=== PATIENT | female | born 1985 | race African-American/Black ===

== ENCOUNTER → 2017-12-06 | Outpatient (CLI) | payer BC | LOC: M SLEEP 19:38 | DX: G47.33 Obstructive sleep apnea (adult) (pediatric) (principal) | CPT/HCPCS: 95810 ==

== ENCOUNTER → 2018-01-16 | Outpatient (CLI) | payer BC | LOC: M SLEEP 19:44 | DX: G47.33 Obstructive sleep apnea (adult) (pediatric) (principal) | CPT/HCPCS: 95811 ==

== ENCOUNTER → 2018-05-26 | Outpatient (REF) | payer BC ==
[~2018-05-26] MED LIST: COLA100C5 PO; IBUP1TAB7 PO; LABE20TAB PO; PERC5TAB12 PO; PREN1TAB18 PO
== END ==
LOC: M LAB REF 15:14
PROVIDERS: ATTEND Nurse Practitioner Family
DX: R21 Rash and other nonspecific skin eruption (principal)

== ENCOUNTER → 2018-08-10 | Outpatient (REF) | payer BC ==
[2018-08-15 14:31] LABS: HPV HYBRID CAPTURE II Negative (Negative)
== END ==
LOC: M LAB REF 16:49
PROVIDERS: ATTEND Advanced Practice Midwife
DX: Z12.4 Encounter for screening for malignant neoplasm of cervix (principal)
CPT/HCPCS: 87624; G0123

== ENCOUNTER → 2018-11-24 | Outpatient (CLI) | payer BC ==
[~2018-11-24] MED LIST changes: +E-Z-GAS II EFFERVESCENT PACKET (SODIUM BICARB./CITRIC ACID/SIMETHICONE) As Ordered ONE; +E-Z-HD 98% w/w 340GM SUSP BTL As Ordered ONE; +E-Z-PAQUE 96% w/w SUSP 176GM BTL As Ordered ONE
--- NOTE | 2018-11-28 09:18 | REP ---
Esophagram The procedure was performed under the direct supervision of Dr. Elder. The images were reviewed with Dr. Elder. A single view PA chest x-ray is submitted as a glass selector film. The superior mediastinal structures are midline. The heart size is within normal limits. The lungs are clear. Liquid barium and gas producing granules were given in the erect position as well as liquid barium in the prone oblique positions in order to perform a double contrast esophagram examination. The oral and pharyngeal stages of deglutition are unremarkable. Esophageal transport is prompt and efficient and there is no esophagitis, stricture, mucosal ring or hiatal hernia. Gastroesophageal reflux is not demonstrated on this examination. Impression: Essentially unremarkable double contrast esophagram examination. 0.6 minutes of fluoro time was utilized for this procedure. Electronically Signed by ALONSO Saldivar 11/24/2018 02:59 P Electronically Signed by Ben Elder MD 11/28/2018 09:08 A
== END ==
LOC: M RAD 07:53
PROVIDERS: ATTEND Otolaryngology
DX: R07.0 Pain in throat (principal)

== ENCOUNTER → 2019-05-24 | Outpatient (REF) | payer BC ==
[~2019-05-24] MED LIST changes: -E-Z-GAS II EFFERVESCENT PACKET (SODIUM BICARB./CITRIC ACID/SIMETHICONE) As Ordered ONE; -E-Z-HD 98% w/w 340GM SUSP BTL As Ordered ONE; -E-Z-PAQUE 96% w/w SUSP 176GM BTL As Ordered ONE
[2019-05-24 17:12] LABS: HEMATOCRIT 35.9 % (36.0-47.0); HEMOGLOBIN 11.7 g/dl (12.0-15.5); MEAN CORPUSCULAR HEMOGLOBIN 27.7 pg (27.0-33.0); MEAN CORPUSCULAR HGB CONC 32.6 g/dl (32.0-36.5); MEAN CORPUSCULAR VOLUME 84.9 fl (80.0-96.0); PLATELET COUNT, AUTOMATED 302 10^3/uL (150-450); RED BLOOD COUNT 4.23 10^6/uL (4.00-5.40); WHITE BLOOD COUNT 9.8 10^3/uL (4.0-10.0)
[2019-05-24 17:17] LABS: ALT/SGPT 14 U/L (12-78); BILIRUBIN,TOTAL 0.2 MG/DL (0.2-1.0); CREATININE FOR GFR 0.56 MG/DL (0.55-1.30); GLOMERULAR FILTRATION RATE > 60.0 (>60); LDH LACTATE DEHYDROGENASE 147 U/L (84-246); URIC ACID 1.9 MG/DL (2.6-6.0)
[2019-05-24 17:35] LABS: CREATININE,RANDOM URINE 79.3 MG/DL; TOTAL PROTEIN,RANDOM URINE 11.1 MG/DL (0.0-12.0)
[2019-05-24 18:51] LABS: CHLAMYDIA DNA AMPLIFICATION NEGATIVE (NEGATIVE); GC DNA AMPLIFICATION NEGATIVE (NEGATIVE)
[2019-05-25 08:29] LABS: RUBELLA IgG QUALITATIVE IMMUNE (IMMUNE)
[2019-05-25 08:30] LABS: HEPATITIS B SURFACE ANTIGEN NEGATIVE (NEGATIVE)
[2019-05-25 08:58] LABS: HEPATITIS C VIRUS ABY INDEX 0.1 INDEX (<0.8); HIV 1&2 SCREEN CENTAUR NEGATIVE (NEGATIVE)
== END ==
LOC: M PLALAB 14:28
PROVIDERS: ATTEND Advanced Practice Midwife
DX: O34.211 Maternal care for low transverse scar from previous cesarean delivery (principal)

== ENCOUNTER → 2019-08-03 | Outpatient (CLI) | payer BC ==
[~2019-08-03] MED LIST changes: +ASPI81TA86 PO; +IBUP80TA PO; +PERCOCET PO
--- NOTE | 2019-08-03 12:22 | REP ---
OBSTETRIC SONOGRAPHY: HISTORY: Supervision of for anatomy. FINDINGS: Scanning through the gravid uterus demonstrates a viable single intrauterine gestation in a variable lie. Placenta is posterior grade 1 without evidence of previa or abruption. motion is observed and heart rate is recorded at 146 beats per minute. Closed cervical length measured transabdominally is 3.4 cm. No extrauterine abnormality observed. Hypoechoic areas are seen in the uterus consistent with fibroids. The largest of these measures 3.0 cm in greatest diameter. No abnormalities observed. The following anatomic structures are identified and felt to be sonographically unremarkable: cranium, choroid plexus, cavum, cerebellum posterior fossa, nuchal fold face and profile, four-chamber heart with left and right ventricular outflow tract views, diaphragm, left-sided stomach, abdominal wall cord insertion, three-vessel umbilical cord, kidneys and bladder, spine, upper and lower extremities. Biometry Chart: BPD 4.1 cm = 18 weeks 3 days HC 15.8 cm = 18 weeks 5 days AC 13.3 cm = 18 weeks 5 days FL 2.5 cm = 17 weeks 5 days HL 2.5 cm = 17 weeks 6 days HC/AC ratio normal 1.19 Cephalic index normal 0.71. Estimated weight 234 grams, 0 pounds 8 ounces, 36th percentile for 18 weeks 4 days. IMPRESSION: Single living intrauterine gestation and 18 weeks 4 days by today's composite sonographic criteria. PRACHI by today's sonography December 31, 2019. No abnormality. Uterine fibroids.
== END ==
LOC: M WHC 09:49
PROVIDERS: ATTEND Advanced Practice Midwife
DX: O10.019 Pre-existing essential hypertension complicating pregnancy, unspecified trimester (principal)

== ENCOUNTER → 2019-09-21 | Outpatient (REF) | payer BC ==
[2019-10-20 04:26] LABS: HEMATOCRIT 33.6 % (36.0-47.0); HEMOGLOBIN 10.7 g/dl (12.0-15.5); MEAN CORPUSCULAR HEMOGLOBIN 28.5 pg (27.0-33.0); MEAN CORPUSCULAR HGB CONC 31.8 g/dl (32.0-36.5); MEAN CORPUSCULAR VOLUME 89.6 fl (80.0-96.0); PLATELET COUNT, AUTOMATED 274 10^3/uL (150-450); RED BLOOD COUNT 3.75 10^6/uL (4.00-5.40); WHITE BLOOD COUNT 13.4 10^3/uL (4.0-10.0)
== END ==
LOC: M SFHCWAGY 17:00
PROVIDERS: ATTEND Obstetrics & Gynecology
DX: O34.211 Maternal care for low transverse scar from previous cesarean delivery (principal)

== ENCOUNTER → 2019-10-19 | Outpatient (CLI) | payer BC ==
--- NOTE | 2019-11-13 13:49 | REP ---
LIMITED OBSTETRICAL ULTRASOUND FOR GROWTH EVALUATION COMPARISON: 08/03/2019. TECHNIQUE: Transabdominal obstetrical ultrasound with color Doppler evaluation. FINDINGS: Ultrasound examination demonstrates a single live intrauterine in cephalic presentation. motion was identified by the technologist. Placenta noted posteriorly and grade 1 without evidence for placenta previa or abruption. Amniotic fluid volume is normal. Cervix measures 3.0 cm in length. ARTUR equals 13.9 cm. heart rate 134 beats per minute. MEASUREMENTS: BPD 74 mm 29 weeks 4 days HC 280 mm 30 weeks 5 days AC 245 mm 28 weeks 6 days FL 52 mm 27 weeks 5 days HL 46 mm 27 weeks 3 days Estimated age by current measurements 29 weeks 2 days with estimated date of delivery 01/02/2020. Estimated weight 1258 grams (4th percentile). Anatomic assessment demonstrates normal stomach, kidney/bladder, three-vessel cord/cord insertion, and facial features. IMPRESSION: Single live intrauterine in cephalic presentation. Estimated weight lower limits of normal. No gross abnormality identified. MTDD
== END ==
LOC: M WHC 08:13
PROVIDERS: ATTEND Advanced Practice Midwife
DX: O16.3 Unspecified maternal hypertension, third trimester (principal); Z3A.29 29 weeks gestation of pregnancy

== ENCOUNTER → 2019-10-31 | Outpatient (CLI) | payer BC ==
--- NOTE | 2019-10-31 15:04 | REPVR ---
PROCEDURE INFORMATION: Exam: US Biophysical Profile Without Non-Stress Test Exam date and time: 10/31/2019 2:33 PM Age: 34 years old Clinical indication: Other: Growth less than 10%; ; Additional info: HTN, growth less than 10% TECHNIQUE: Imaging protocol: US biophysical profile without non-stress testing. COMPARISON: US PBB W/O NON STRESS TEST 12/22/2015 11:06 AM FINDINGS: BIOPHYSICAL PROFILE: Breathin/2 Gross body movements: 2/2 tone: 2/2 Qualitative amniotic fluid: 2/2 Biophysical Profile Score: 8/8 IMPRESSION: Biophysical profile score is 8 out of 8. Electronically signed by: Philip Venegas On 10/31/2019 15:04:15 PM
== END ==
LOC: M RAD 13:37
PROVIDERS: ATTEND Advanced Practice Midwife
DX: O10.019 Pre-existing essential hypertension complicating pregnancy, unspecified trimester (principal); O36.5990 Maternal care for other known or suspected poor fetal growth, unspecified trimester, not applicable or unspecified

== ENCOUNTER → 2019-11-07 | Outpatient (CLI) | payer BC ==
--- NOTE | 2019-11-15 17:22 | REP ---
BIOPHYSICAL PROFILE ULTRASOUND CLINICAL: wellbeing. TECHNIQUE: Transabdominal obstetrical ultrasound with color Doppler evaluation. FINDINGS: Ultrasound examination demonstrates a single live intrauterine in transverse lie with head to maternal left. motion identified by the technologist. Placenta noted posteriorly and grade 3 without evidence for placenta previa. Amniotic fluid volume is normal. Cervix measures 3.8 cm in length and appears closed. Gestational age by last menstrual period (LMP) 33 weeks 0 days with estimated date of delivery 12/26/2019. Gestational age by current measurements 30 weeks 6 days with estimated date of delivery 01/10/2020. heart rate 124 beats per minute. Amniotic fluid index (ARTUR) 10.8 cm. BIOMETRIC MEASUREMENTS: BPD 8.0 cm 32 weeks 0 days HC 30.1 cm 33 weeks 2 days AC 26.4 cm 30 weeks 3 days FL 5.5 cm 29 weeks 0 days HL 5.0 cm 29 weeks 2 days HC/AC ratio 1.14 Estimated weight 1570 grams (less than 3rd percentile based on age by last menstrual period (LMP). Biophysical profile score equals 8/8. Umbilical cord S/D ratio equals 2.8, 2.5. IMPRESSION: * Single live intrauterine in transverse lie. * Estimated weight and growth is less than expected and requires correlation. * Biophysical profile score equals 8/8. MTDD
== END ==
LOC: M WHC 07:00
PROVIDERS: ATTEND Advanced Practice Midwife
DX: O16.3 Unspecified maternal hypertension, third trimester (principal); Z3A.33 33 weeks gestation of pregnancy

== ENCOUNTER → 2019-11-14 | Outpatient (CLI) | payer BC ==
--- NOTE | 2019-11-21 14:12 | REP ---
OBSTETRIC SONOGRAPHY HISTORY: Maternal hypertension. Biophysical profile and umbilical cord Doppler assessment. Estimated date of delivery (PRACHI) 12/26/2019. Limited study. FINDINGS: Scanning through the gravid uterus demonstrates a viable single intrauterine gestation in a cephalic lie. A posterior grade 3 placenta is seen without evidence of previa. heart rate is recorded at 128 beats per minute. Amniotic fluid is subjectively normal. Amniotic fluid index (ARTUR) is normal at 12.4 cm. Biophysical profile score is 8 out of a possible 8. S/D ratio in the umbilical cord artery by Doppler is normal at 2.6. Closed cervical length is 3.2 cm measured transabdominally. MTDD
== END ==
LOC: M WHC 06:32
PROVIDERS: ATTEND Advanced Practice Midwife
DX: O10.019 Pre-existing essential hypertension complicating pregnancy, unspecified trimester (principal)

== ENCOUNTER → 2019-11-20 | Outpatient (CLI) | payer BC ==
--- NOTE | 2019-11-27 09:05 | REP ---
OB ULTRASOUND BIOPHYSICAL PROFILE: 11/20/19 HISTORY: Hypertension Real time sonographic evaluation of gravid uterus performed. There is a single living intrauterine gestation. Estimated gestation age is reportedly 34 weeks 6 days, EDC 12/26/19. position is cephalic. Placenta is posterior and grade 2 with no previa or abruption. Umbilical cord inserts on the mid aspect of the placenta. Three vessel cord is noted. HEART RATE is 135bpm. Amniotic fluid is within normal limits. ARTUR 13.0 within normal range of 7.9-24.9. BIOPHSYICAL PROFILE SCORE: 8/8. The cervix is closed and measures 3.6cm in length. S/D Ratio of the umbilical artery near the placental insertion is 2.6, near the insertion is 2.7, and mid aspect 2.8 MTDD
== END ==
LOC: M WHC 06:50
PROVIDERS: ATTEND Advanced Practice Midwife
DX: O16.3 Unspecified maternal hypertension, third trimester (principal); Z3A.34 34 weeks gestation of pregnancy

== ENCOUNTER → 2019-11-26 | Outpatient (REF) | payer BC | LOC: M SFHCWAGY 10:19 | PROVIDERS: ATTEND Obstetrics & Gynecology | DX: O10.912 Unspecified pre-existing hypertension complicating pregnancy, second trimester (principal) ==

== ENCOUNTER → 2019-11-28 | Outpatient (CLI) | payer BC ==
--- NOTE | 2019-11-30 15:43 | REP ---
LIMITED OBSTETRICAL ULTRASOUND CLINICAL: History of hypertension for wellbeing. COMPARISON: 11/20/2019. FINDINGS: Ultrasound examination demonstrates a single live advanced gestation in cephalic presentation. motion was identified by the technologist. Placenta is noted posteriorly and grade 2 without evidence for placenta previa. Amniotic fluid volume is normal. Cervix measures 3.3 cm in length and appears closed. Amniotic fluid index (ARTUR) equals 14.3 cm. heart rate equals 133 beats per minute. Gestational age by last menstrual period (LMP) 36 weeks 0 days with estimated date of delivery 12/26/2019. Gestational age by current measurements 33 weeks 2 days with estimated date of delivery 01/14/2020. HC/AC ratio equals 1.04. Estimated weight by current biometrical measurements 2199 grams (less than 3rd percentile) based on age by last menstrual period (LMP). Biophysical profile score: 8 out of 8. Umbilical cord S/D ratios: Placenta insertion 2.1 Mid-cord 2.3 insertion 2.4 IMPRESSION: * Single live intrauterine in cephalic presentation demonstrating less than expected interval growth. * Biophysical profile score and amniotic fluid volume are normal. MTDD
== END ==
LOC: M WHC 06:36
PROVIDERS: ATTEND Advanced Practice Midwife
DX: O16.3 Unspecified maternal hypertension, third trimester (principal); Z3A.36 36 weeks gestation of pregnancy

== ENCOUNTER → 2019-11-29 | Outpatient (CLI) | payer BC | LOC: M LABSMTC 10:01 | PROVIDERS: ATTEND Anesthesiology | DX: Z01.812 Encounter for preprocedural laboratory examination (principal); Z20.828 Contact with and (suspected) exposure to other viral communicable diseases | CPT/HCPCS: C9803; U0003 ==

== ENCOUNTER 2019-12-01 10:15 | Outpatient (CLI) | payer BC ==
[~2019-12-01] VITALS: Ht 162.6 cm; Wt 87.1 kg
[~2019-12-01 10:15] MED LIST changes: -IBUP80TA PO; -PERCOCET PO
[2019-12-01 10:36] VITALS: BP 128/81
[2019-12-01] MEDS ORDERED: BETAMETHASONE SOLUSPAN 6MG/ML 5ML VIAL (J0702 PER 3MG) IM ONE (10:45)
== END 2019-12-01 11:07 | disposition home or self-care (01) ==
LOC: M LDO 10:15
PROVIDERS: ATTEND Obstetrics & Gynecology
DX: Z34.83 Encounter for supervision of other normal pregnancy, third trimester (principal)
CPT/HCPCS: 96372; G0378; G0463; J0702

== ENCOUNTER 2019-12-02 10:57 | Outpatient (CLI) | payer BC ==
[2019-12-02 11:11] VITALS: BP 122/78
[2019-12-02] MEDS ORDERED: BETAMETHASONE SOLUSPAN 6MG/ML 5ML VIAL (J0702 PER 3MG) IM ONE (11:15)
== END 2019-12-02 11:20 | disposition home or self-care (01) ==
LOC: M LDO 10:57
PROVIDERS: ATTEND Obstetrics & Gynecology
DX: Z34.83 Encounter for supervision of other normal pregnancy, third trimester (principal)
CPT/HCPCS: 96372; G0378; J0702

== ENCOUNTER 2019-12-04 05:19 | Inpatient (IN) | payer BC ==
[2019-12-04] VITALS (7 sets, daily range): BP systolic 114–136; BP diastolic 51–89
[~2019-12-04] VITALS: Ht 162.6 cm; Wt 87.0 kg
[2019-12-04] MEDS ORDERED: BICITRA 30ML SOLN UDC PO ONE (05:45)
[2019-12-04] MEDS ORDERED: LR 1,000 ML IV SCH ×3 (05:45→11:30)
[2019-12-04] MEDS ORDERED: ceFAZolin SOD 2 GM in IV 1 EA IV ONE (05:45)
[2019-12-04] MEDS ORDERED: LR 1,000 ML IV ONE (05:45)
[2019-12-04 06:37] LABS: HEMATOCRIT 33.9 % (36.0-47.0); HEMOGLOBIN 10.8 g/dl (12.0-15.5); MEAN CORPUSCULAR HEMOGLOBIN 27.7 pg (27.0-33.0); MEAN CORPUSCULAR HGB CONC 31.9 g/dl (32.0-36.5); MEAN CORPUSCULAR VOLUME 86.9 fl (80.0-96.0); PLATELET COUNT, AUTOMATED 272 10^3/uL (150-450); WHITE BLOOD COUNT 13.8 10^3/uL (4.0-10.0)
[2019-12-04] MEDS ORDERED: MORPHINE PRES-FREE INJ 10 MG/10 ML VIAL (J2274) As Ordered ONE (09:20)
[2019-12-04] MEDS ORDERED: ONDANSETRON 4MG/2ML VIAL As Ordered ONE (09:20)
[2019-12-04] MEDS ORDERED: OXYTOCIN INJ 10 UNITS/ML VIAL (J2590) As Ordered ONE (09:20)
[2019-12-04] MEDS ORDERED: NALBUPHINE HCL 10 MG/ML AMP (J2300) IV PRN ×2 (09:35→11:30)
[2019-12-04] MEDS ORDERED: ONDANSETRON 4MG/2ML VIAL IV PRN ×3 (09:35→11:30)
[2019-12-04] MEDS ORDERED: diphenhydrAMINE 50MG/ML VIAL (J1200) IV PRN (09:35)
[2019-12-04] MEDS ORDERED: NALOXONE INJ 0.4MG/1ML VIAL (J2310 PER 1MG) IV PRN ×2 (09:35)
[2019-12-04] MEDS ORDERED: METOCLOPRAMIDE INJ 10MG/2ML VIAL (J2765 PER 1) IV PRN (09:35)
[2019-12-04] MEDS ORDERED: ePHEDrine SULFATE 25 MG/5 ML(5MG/ML) SYRINGE As Ordered ONE (09:42)
[2019-12-04] MEDS ORDERED: OXYTOCIN DRIP 30 UNITS in IV 1 EA IV SCH ×2 (10:40→10:51)
[2019-12-04] MEDS ORDERED: METHYLERGONOVINE MALEATE 0.2 MG TAB PO PRN (10:45)
[2019-12-04] MEDS ORDERED: IBUPROFEN 600MG TAB PO PRN (10:45)
[2019-12-04] MEDS ORDERED: RHOGAM 300 MCG (1500 IU) INJ (J2790) IM SCH (10:45)
[2019-12-04] MEDS ORDERED: DIBUCAINE 1% OINTMENT 30GM TOP PRN (10:45)
[2019-12-04] MEDS ORDERED: ACETAMINOPHEN TAB 650MG DOSE (2X325MG) PO PRN (10:45)
[2019-12-04] MEDS ORDERED: ACETAMINOPHEN 500 MG TAB PO PRN (10:45)
[2019-12-04] MEDS ORDERED: MEASLES,MUMPS,RUBELLA VACCINE INJ (MMR-II) (90707) SC SCH (10:45)
[2019-12-04] MEDS ORDERED: MOM 30ML SUSPENSION UDC PO PRN (10:45)
--- NOTE | 2019-12-04 10:49 | ROOPDOC ---
[facility] Report Of Operation Report of Operation DATE OF PROCEDURE: 12/04/19 SURGEON: Tania Ferreira M.D. FINGERER: Jayden Lindquist M.D. ( essential for tissue retractions, exposure and delivery of ) PROCEDURE: Repeat section PREOPERATIVE DIAGNOSIS: 1. History of prior section 2. Chronic Hypertension 3. Intrauterine growth restriction, <3% POSTOPERATIVE DIAGNOSIS: 1. History of prior section 2. Chronic Hypertension 3. Intrauterine growth restriction, <3% ANESTHESIA: Spinal ESTIMATED BLOOD LOSS: 600 mL URINE OUTPUT: 75 mL INTRAVENOUS FLUIDS:1000 mL of lactated Ringer's solution PREOPERATIVE ANTIBIOTICS:. 2 g of Ancef 500 OPERATIVE FINDINGS: Liveborn female infant, Apgars 9 and 9. Weight 2420 g or 5 lbs. 5 oz. SPECIMENS: Placenta DESCRIPTION OF PROCEDURE: After informed consent was obtained and written consent was reviewed. The patient was brought to the operating room where spinal anesthesia was placed. She was then placed in the supine position with a left lateral tilt. Sue catheter was placed and to gravity. Patient was then prepped and draped in the normal sterile fashion. A timeout operating room was performed identifying the patient, procedure be performed as well as drug allergies. Anesthesia was tested and deemed to be adequate. Previous skin incision was removed. The fascia was then scored and this incision was extended bilaterally. The fascia was then dissected off the underlying rectus muscle superiorly and inferiorly. The rectus muscles were then in the midline. The peritoneum is then entered. Vesicouterine peritoneum was then tented and excised and a bladder flap was created. Mobius retractor was then placed. Next, a curvilinear incision was then made in the lower uterine segment. Amniotomy was performed, productive, clear fluid. The head was brought to the level of the incision atraumatically and delivered along the shoulders and corpus. The cord was clamped x2. The was brought over to the warmer with a good cry. Placenta was drained and delivered grossly intact. The uterus was cleared of all clots and debris and the uterine incision was then closed using 0 Vicryl in a running locking fashion followed. The abdomen was suctioned. Surgical sites reinspected and noted be hemostatic. The retractor was then removed. The anterior peritoneum was then reapproximated with 3-0 Vicryl. The rectus muscles were reapproximated 3-0 Vicryl. The fascia was then closed using 0 Vicryl in a running nonlocking fashion. The subcutaneous tissues was then irrigated and suctioned. Several subdermal stitch is placed using 3-0 Vicryl and the skin was closed with 4-0 Monocryl and subcuticular fashion. This incision was then cleaned and dried and was dressed. The patient was then taken to recovery in stable condition. All counts were correct. My assistant finance director Dr. Lindquist, played in an essential role during the operation. He assisted with tissue identification retraction, delivery of the , as well as wound closure. TANIA FERREIRA MD. Dec 04, 2019 10:49
[2019-12-04] MEDS ORDERED: IBUP80TA PO (10:51)
[2019-12-04] MEDS ORDERED: PERCOCET PO (10:58)
[2019-12-04] MEDS ORDERED: PERCOCET 5MG/325MG TAB PO PRN ×2 (11:00)
[2019-12-04] MEDS ORDERED: fentaNYL 100 MCG/2 ML INJECTION (J3010) IV PRN (11:30)
[2019-12-04] MEDS ORDERED: OXYTOCIN 30 UNITS IN 0.9% NaCl 500ML IV BAG (J2590) As Ordered ONE (11:39)
[2019-12-04] MEDS: PRENATAL VITAMINS CHEWABLE TABLET PO SCH (12:43)
[2019-12-04] MEDS: DOCUSATE SODIUM 100 MG CAP PO SCH ×2 (12:43→20:45)
[2019-12-04] MEDS ORDERED: KETOROLAC 30 MG/ML 1ML VIAL IV SCH (13:00)
[2019-12-04] MEDS: KETOROLAC 30 MG/ML 1ML VIAL IV SCH ×2 (14:28→20:02)
[2019-12-04] MEDS: LABETALOL 200 MG TAB PO SCH (20:45)
[2019-12-05 01:52] VITALS: BP 119/66
[2019-12-05] MEDS: KETOROLAC 30 MG/ML 1ML VIAL IV SCH ×2 (02:22→08:29)
[2019-12-05 06:09] VITALS: BP 118/59
[2019-12-05 07:06] LABS: HEMOGLOBIN 10.4 g/dl (12.0-15.5); MEAN CORPUSCULAR HEMOGLOBIN 28.3 pg (27.0-33.0); MEAN CORPUSCULAR HGB CONC 32.5 g/dl (32.0-36.5); PLATELET COUNT, AUTOMATED 237 10^3/uL (150-450); RED BLOOD COUNT 3.68 10^6/uL (4.00-5.40)
--- NOTE | 2019-12-05 07:34 | IPNPDOC ---
Progress Note Date of Service: Dec 05, 2019 Day#: 1 Progress Note SUBJECT: Doing well without complaints. Ambulating, voiding and pain is well- controlled. Reports minimal lochia. OBJECTIVE: VITAL SIGNS: Within normal limits, afebrile. Alert and oriented times three. Abdomen: Fundus firm at U-2. Soft, NTTP. Incision: dressed Ext: neg calf tenderness. ASSESSMENT: /postoperative day #1 status post delivery. Recovering in stable condition. PLAN: 1. Continue routine /postoperative care 2. Discharge plans for tomorrow VS, I&O, 24H, Fishbone Vital Signs/I&O Vital Signs Date Time Temp Pulse Resp B/P (MAP) Pulse Ox O2 Delivery O2 Flow Rate FiO2 12/05/19 06:09 97.4 78 18 118/59 (78) 97 12/04/19 22:00 Room Air I&O- Last 24 Hours up to 6 AM 12/05/19 05:59 Intake Total 4000 ml Output Total 1725 ml Balance 2275 ml Laboratory Data 24H LABS Laboratory Tests 2 12/05/19 06:52: Nucleated Red Blood Cells % (auto) 0.0 CBC/BMP Laboratory Tests 12/05/19 06:52 ANKUR DEL RIO MD. Dec 05, 2019 07:34
[2019-12-05] MEDS: DOCUSATE SODIUM 100 MG CAP PO SCH ×2 (08:28→20:37)
[2019-12-05] MEDS: PRENATAL VITAMINS CHEWABLE TABLET PO SCH (08:28)
[2019-12-05] MEDS: LABETALOL 200 MG TAB PO SCH ×2 (08:29→20:41)
[2019-12-05] MEDS ORDERED: INFLUENZA QUADRIVALENT PF VACCINE 0.5ML SYRINGE IM ONE (09:00)
[2019-12-05 10:00] VITALS: BP 108/57
[2019-12-05 14:00] VITALS: BP 134/79
[2019-12-05] MEDS: IBUPROFEN 800 MG TAB PO PRN (17:00)
[2019-12-05 18:00] VITALS: BP 118/73
[2019-12-05 22:00] VITALS: BP 114/64
[2019-12-06 02:00] VITALS: BP 117/68
[2019-12-06 06:00] VITALS: BP 122/69
[2019-12-06] MEDS ORDERED: INFLUENZA QUADRIVALENT PF VACCINE 0.5ML SYRINGE IM ONE (09:00)
[2019-12-06] MEDS: DOCUSATE SODIUM 100 MG CAP PO SCH (09:13)
[2019-12-06 09:14] VITALS: BP 136/88
[2019-12-06] MEDS: LABETALOL 200 MG TAB PO SCH (09:14)
[2019-12-06] MEDS: PRENATAL VITAMINS CHEWABLE TABLET PO SCH (09:14)
[2019-12-06] MEDS: IBUPROFEN 800 MG TAB PO PRN (09:29)
--- NOTE | 2019-12-06 09:49 | DSES ---
DATE OF ADMISSION: 12/04/2019 DATE OF DISCHARGE: DISCHARGE DIAGNOSIS: Repeat section, chronic hypertension; postop day two; stable condition. SURGEON: Dr. Tania Ferreira INSTRUCTOR TAP DANCING: Dr. Jayden Lindquist HISTORY: Stephanie is a 34 year old who underwent repeat section on 12/04/2019 due to chronic hypertension complicated with intrauterine growth restriction. She was 36-6/7 week's gestation. Her surgery was uncomplicated. She had an estimated blood loss (EBL) of 600 mL, delivered a live female weighing 2420 grams (5 pounds 5 ounces) and Apgars 9/9. Stephanie has had an uncomplicated postoperative course. She has been out of bed for self-care, pierre care, infant care. She is breast feeding. She is voiding without difficulty and passing flatus. Her pain at this point has been well managed with p.o. pain medications, tolerating p.o. fluids and a regular diet, and she does request discharge home today. OBJECTIVE: Temp 98.4, pulse 75, respirations 18, blood pressure is 122/69. CBC, 12/04/2019: Hemoglobin 10.8, hematocrit 33.9, platelets 272. CBC, 12/05/2019 postoperatively: Hemoglobin 10/4, hematocrit 32 and platelets 237. Her breasts are soft and nontender. Nipples are intact. Her fundus is firm, one fingerbreadth under umbilicus. The incision is intact with a dressing applied. There is no new drainage noted. Perineum is intact with lochia rubra scant. Bilateral lower extremities with 1+ pitting edema. PLAN: Discharge the patient home today. She is to follow up with a two-week incision check and an eight-week visit with Dr. Ferreira. The pain medications, ibuprofen and Percocet, have been E-prescribed to her pharmacy by Tania Goode. I did review discharge instructions that include breast care, incision care, pierre care, pelvic rest, activity and lifting restrictions, access to care and other danger signs to report to her provider. The patient and her have had their questions answered and desire discharge. [place]
== END 2019-12-06 13:40 | disposition home or self-care (01) | DRG 540 ==
LOC: M LDI 05:19 → M OBS 10:26
PROVIDERS: ADMIT Obstetrics & Gynecology; ATTEND Obstetrics & Gynecology
PROC: 10D00Z1 Extraction of Products of Conception, Low, Open Approach (ICD-10-PCS; principal; 2019-12-04 09:30)
DX: O36.5930 Maternal care for other known or suspected poor fetal growth, third trimester, not applicable or unspecified (principal); O34.211 Maternal care for low transverse scar from previous cesarean delivery; O10.02 Pre-existing essential hypertension complicating childbirth; Z37.0 Single live birth; Z3A.36 36 weeks gestation of pregnancy

== ENCOUNTER → 2020-01-30 | Outpatient (REF) | payer BC ==
[~2020-01-30] MED LIST changes: +IBUP80TA PO; +PERCOCET PO
== END ==
LOC: M SFHCWAGY 17:05
PROVIDERS: ATTEND Obstetrics & Gynecology
DX: R30.0 Dysuria (principal)

== ENCOUNTER → 2020-06-10 | Outpatient (CLI) | payer BC ==
--- NOTE | 2020-06-10 14:31 | REP ---
INDICATION: N63.0 LEFT BREAST NODULE. COMPARISON: None TECHNIQUE: Ultrasonographic evaluation of the left breast at the 2 o'clock position over the region of a palpable area was performed. FINDINGS: There is a solid, peripherally hypoechoic ,centrally echogenic 1.3 x 1.2 x 0.8 cm sized nodule at the 2 o'clock position. Color Doppler imaging of this shows a hypervascular pattern. IMPRESSION: Ultrasonographic findings suggest a reactive lymph node. Since the patient is breast feeding at this time diagnostic mammography cannot be performed. ACR category 3. Six-month follow-up ultrasound recommended with clinical correlation. <Electronically signed by Sunny Gotti > 06/10/20 [id number]
== END ==
LOC: M WHC 12:50
PROVIDERS: ATTEND Advanced Practice Midwife
DX: N63.0 Unspecified lump in unspecified breast (principal)

== ENCOUNTER → 2020-07-23 | Outpatient (CLI) | payer BC ==
[2020-07-23 13:44] VITALS: BP 132/86
--- NOTE | 2020-07-23 23:19 | ROOPDOC ---
[facility] Report Of Operation Report of Operation DATE OF PROCEDURE: 07/23/20 DIAGNOSIS: Left breast palpable mass, likely abnormal intramammary lymph node PROCEDURE: Ultrasound guided biopsy of Left breast palpable mass, likely abnormal intramammary lymph node with clip placement SURGEON: Gregory Cervantes BLOOD LOSS: minimal COMPLICATIONS: none Lidocaine 1% LOT [id number] Expiration 08/2023 Sodium Bicarbonate 8.4% LOT [id number] Expiration 03/2021 Hydromark clip LOT [id number] Expiration 12/2022 SHAPE 4 Bx device: TEMNO 18G x 20 cm LOT [id number] Expiration 07/2023 Informed consent was obtained. The most common risk and possible complications including bleeding, hematoma, bruising, infection, injury to surrounding structures were explained to the patient and the patient expressed understanding. Patient was placed on the bed in the supine position. Appropriate time out was done stating patients name, date of , and the procedure to be performed. The left breast was prepped and draped in the usual fashion. The ultrasound was used to confirm the location of Left breast palpable mass, likely abnormal intramammary lymph node with cortex measuring 5 mm. Plain Lidocaine 1% and 8.4% sodium bicarbonate 10:1 mix was used to anesthetize the skin, the biopsy site and tissues along the anticipated biopsy tract. Small skin incision was made with blade number 11. Temno 18G cannula with introducer was inserted through the incision and advanced under the ultrasound guidance to position immediately adjacent to the Left breast palpable mass, likely abnormal intramammary lymph node with 5 mm cortex. Next, the introducer was removed and Temno 18G biopsy device was places in the cannula. Pre-biopsy imaging, and post-biopsy imaging were captured. Five good core biopsies were taken at various levels of the lesion. Specimen was placed in formaldehyde, labeled with appropriate biopsy site and patients name, and sent to pathology for evaluation. Next, the biopsy device and cannula were withdrawn and a clip introducer was inserted into the position immediately adjacent to the biopsied Left breast palpable mass, likely abnormal intramammary lymph node. The SHAPE 4 Hydromark clip was deployed under sonographic guidance. Post-clip placement image was captured. Manual pressure over the biopsy cavity and tract was held after the clip introducer was withdrawn. No bleeding was noted upon removal of the pressure. Left breast mammogram was not done post biopsy due to fact that patient is lactating and radiology team did not wish to do mammogram on her previously. Postprocedural dressing was placed. Patient tolerated procedure well. Discharge instructions were discussed with the patient and the patient expressed understanding. GREGORY CERVANTES. DO Jul 23, 2020 23:19
--- NOTE | 2020-07-24 05:43 | REP ---
INDICATION: R59.9 LT PALPABLE LYMP NODES COMPARISON: None TECHNIQUE: Realtime grayscale ultrasound examination using linear high-frequency transducer. FINDINGS: Ultrasound examination of the left axillary region. Two lymph nodes are identified measuring 14 x 8 x 8 mm (cortex 3.4 mm) and 29 x 7 x 14 mm (cortex 3.1 mm). IMPRESSION: Two normal appearing axillary lymph nodes noted <Electronically signed by Tripp Gallagher > 07/24/20 [id number]
== END ==
LOC: M WHCPRO 06:45
PROVIDERS: ATTEND Surgery
DX: N63.20 Unspecified lump in the left breast, unspecified quadrant (principal); D24.2 Benign neoplasm of left breast

== ENCOUNTER → 2021-01-26 | Outpatient (CLI) | payer BC | LOC: M WHC 07:58 | PROVIDERS: ATTEND Surgery | DX: N63.21 Unspecified lump in the left breast, upper outer quadrant (principal); R59.9 Enlarged lymph nodes, unspecified ==

== ENCOUNTER → 2022-01-11 | Outpatient (REF) | payer BC | LOC: M SFHCWAGY 14:58 | PROVIDERS: ATTEND Specialist | DX: Z12.4 Encounter for screening for malignant neoplasm of cervix (principal) | CPT/HCPCS: 87624; G0123 ==

== ENCOUNTER → 2022-04-23 | Outpatient (CLI) | payer BC | LOC: M WHC 10:08 | PROVIDERS: ATTEND Nurse Practitioner Women's Health | DX: Z12.31 Encounter for screening mammogram for malignant neoplasm of breast (principal); Z91.89 Other specified personal risk factors, not elsewhere classified; Z80.3 Family history of malignant neoplasm of breast; Z80.42 Family history of malignant neoplasm of prostate ==

== ENCOUNTER → 2022-12-13 | Outpatient (REF) | payer BC ==
[2022-12-13 17:53] LABS: PERCENT SATURATION 5.4 % (13.2-45.0)
[2022-12-13 17:56] LABS: FERRITIN 2.2 NG/ML (7.3-270.7)
== END ==
LOC: M LAB REF 16:47
PROVIDERS: ATTEND Physician Assistant Medical
DX: D50.9 Iron deficiency anemia, unspecified (principal)

== ENCOUNTER → 2023-01-05 | Outpatient (CLI) | payer BC | LOC: M WUC 10:01 | PROVIDERS: ATTEND Nurse Practitioner Family | DX: J06.9 Acute upper respiratory infection, unspecified (principal) ==

== ENCOUNTER → 2023-01-18 | Outpatient (REF) | payer BC | LOC: M SFHCWAGY 13:39 | PROVIDERS: ATTEND Specialist | DX: Z12.4 Encounter for screening for malignant neoplasm of cervix (principal) | CPT/HCPCS: 87624; G0123 ==

== ENCOUNTER → 2023-06-15 | Outpatient (CLI) | payer BC | LOC: M SLEEP HO 11:37 | PROVIDERS: ATTEND Internal Medicine Pulmonary Disease | DX: R06.83 Snoring (principal) ==

== ENCOUNTER → 2023-08-24 | Outpatient (CLI) | payer BC | LOC: M WHC 12:53 | PROVIDERS: ATTEND Nurse Practitioner Women's Health | DX: Z12.31 Encounter for screening mammogram for malignant neoplasm of breast (principal) ==

== ENCOUNTER → 2023-12-20 | Outpatient (REF) | payer BC ==
[2023-12-20 14:11] LABS: PERCENT SATURATION 9.6 % (13.2-45.0)
== END ==
LOC: M LAB REF 13:35
PROVIDERS: ATTEND Physician Assistant Medical
DX: D50.9 Iron deficiency anemia, unspecified (principal)

== ENCOUNTER → 2024-10-29 | Outpatient (REF) | payer BC ==
[2024-10-31 15:03] LABS: HPV APTIMA Not Detected (Not Detected)
== END ==
LOC: M SFHCWAGY 13:05
PROVIDERS: ATTEND Specialist
DX: Z01.419 Encounter for gynecological examination (general) (routine) without abnormal findings (principal)
CPT/HCPCS: 87624; G0123

== ENCOUNTER → 2024-12-20 | Outpatient (REF) | payer BC ==
[2024-12-20 12:38] LABS: IRON (FE) 24.0 UG/DL (50-170); PERCENT SATURATION 5.3 % (13.2-45.0)
== END ==
LOC: M LAB REF 11:41
PROVIDERS: ATTEND Physician Assistant Medical
DX: D50.9 Iron deficiency anemia, unspecified (principal)